=== PATIENT | male | born 1945 | race Caucasian/White ===

== ENCOUNTER 2024-12-20 15:06 | Emergency (ER) | payer OTHER ==
[~2024-12-20] VITALS: Ht 175.3 cm; Wt 70.3 kg
[2024-12-20 15:06] VITALS: BP 121/69; TEMP 98.6
[2024-12-20] MEDS ORDERED: HYDR-3976 GT (15:42)
[2024-12-20] MEDS ORDERED: IBUP-1953 PO (15:42)
[2024-12-20] MEDS ORDERED: HYDR-3976 PO (15:55)
[2024-12-20 15:58] VITALS: O2SAT 98
== END 2024-12-20 15:59 | disposition home or self-care (01) ==
LOC: ER 15:15
DX: R52 Pain, unspecified (principal); Z76.0 Encounter for issue of repeat prescription; Z79.1 Long term (current) use of non-steroidal anti-inflammatories (NSAID); Z98.1 Arthrodesis status